=== PATIENT | male | born 1985 | race Caucasian/White ===

== ENCOUNTER 2016-07-13 09:00 | Outpatient (RCR) | payer MEDICAID ==
[~2016-07-13 09:00] MED LIST: BENZ1TA PO; GEOD20CA14 PO; TRAZ50TA4 PO; ZIPR80CA12 PO
== END 2016-07-27 ==
LOC: M OUTALCOH 09:00
PROVIDERS: ATTEND Psychiatry & Neurology Psychiatry
DX: F10.10 Alcohol abuse, uncomplicated (principal)

== ENCOUNTER → 2016-07-30 | Outpatient (REF) | payer OTHER | LOC: M SFHCPLAZ 13:01 | PROVIDERS: ATTEND Physician Assistant | DX: Z23 Encounter for immunization (principal) ==

== ENCOUNTER → 2016-10-12 | Outpatient (REF) | payer OTHER | LOC: M LAB REF 16:26 | PROVIDERS: ATTEND Physician Assistant Medical | DX: R30.0 Dysuria (principal) ==

== ENCOUNTER → 2016-10-20 | Outpatient (REF) | payer OTHER ==
[2016-10-20 16:25] LABS: BASO # 0.1 K/mm3 (0.0-0.2); BASO % 0.8 % (0.0-1.0); EOS # 0.1 K/mm3 (0.0-0.50); EOS % 1.3 % (0.0-3.0); LARGE UNSTAINED CELL # 0.1 K/mm3 (0.0-0.4); LARGE UNSTAINED CELL % 1.1 % (0.0-4.0); LYMPH # 2.2 K/mm3 (1.5-6.5); LYMPH % 22.2 % (24.0-44.0); MEAN CORPUSCULAR HGB CONC 32.8 g/dl (32.0-36.5); MEAN CORPUSCULAR VOLUME 94.4 fl (80.0-96.0); MONO # 0.5 K/mm3 (0.0-0.8); MONO % 5.1 % (0.0-5.0); NEUTROPHILS # 6.6 K/mm3 (1.8-7.7); NEUTROPHILS % 69.6 % (36.0-66.0); PLATELET COUNT, AUTOMATED 275 k/mm3 (150-450); RED CELL DISTRIBUTION WIDTH 11.8 % (11.5-14.5); WHITE BLOOD COUNT 9.4 K/mm3 (4.0-10.0)
[2016-10-20 19:08] LABS: ALBUMIN 3.9 GM/DL (3.2-5.2); ALBUMIN/GLOBULIN RATIO 1.15 (1.00-1.93); ALKALINE PHOSPHATASE 70 U/L (45-117); ALT/SGPT 22 U/L (12-78); AMYLASE 41 U/L (25-115); ANION GAP 8 MEQ/L (8-16); AST/SGOT 18 U/L (15-37); BILIRUBIN,TOTAL 0.3 MG/DL (0.2-1.0); BLOOD UREA NITROGEN 15 MG/DL (7-18); CALCIUM LEVEL 8.7 MG/DL (8.5-10.1); CARBON DIOXIDE LEVEL 29 MEQ/L (21-32); CHLORIDE LEVEL 105 MEQ/L (98-107); CREATININE FOR GFR 1.11 MG/DL (0.70-1.30); GLOMERULAR FILTRATION RATE > 60.0 (>60); GLUCOSE, FASTING 71 MG/DL (70-105); POTASSIUM SERUM 4.2 MEQ/L (3.5-5.1); SODIUM LEVEL 142 MEQ/L (136-145); TOTAL PROTEIN 7.3 GM/DL (6.4-8.2)
== END ==
LOC: M SFHCPLAZ 13:45
PROVIDERS: ATTEND Physician Assistant
DX: R10.9 Unspecified abdominal pain (principal)

== ENCOUNTER 2017-02-01 22:52 | Inpatient (IN) | payer MEDICAID, OTHER ==
[~2017-02-01] VITALS: Ht 190.5 cm; Wt 72.2 kg
[~2017-02-01 22:52] MED LIST changes: -GEOD60CA PO; -MUPI2OI TOP; -NAPHSOL OU; -TRAZO50TA PO
[2017-02-01] MEDS ORDERED: LORazepam 1 MG TAB PO ONE (23:15)
[2017-02-01] MEDS ORDERED: HALOPERIDOL 5 MG TAB PO ONE (23:15)
[2017-02-01 23:59] LABS: MEAN CORPUSCULAR HGB CONC 32.9 g/dl (32.0-36.5); MEAN CORPUSCULAR VOLUME 91.1 fl (80.0-96.0); RED CELL DISTRIBUTION WIDTH 12.5 % (11.5-14.5)
[2017-02-02 00:22] LABS: METHADONE URINE NEGATIVE (NEGATIVE)
[2017-02-02 00:31] LABS: ALBUMIN 4.1 GM/DL (3.2-5.2); ALBUMIN/GLOBULIN RATIO 1.21 (1.00-1.93); ALKALINE PHOSPHATASE 55 U/L (45-117); ALT/SGPT 17 U/L (12-78); ANION GAP 6 MEQ/L (8-16); AST/SGOT 23 U/L (15-37); BILIRUBIN,DIRECT 0.3 MG/DL (0.0-0.2); BILIRUBIN,TOTAL 1.3 MG/DL (0.2-1.0); BLOOD UREA NITROGEN 12 MG/DL (7-18); CALCIUM LEVEL 9.2 MG/DL (8.5-10.1); CARBON DIOXIDE LEVEL 31 MEQ/L (21-32); CHLORIDE LEVEL 105 MEQ/L (98-107); CREATININE FOR GFR 0.98 MG/DL (0.70-1.30); GLOMERULAR FILTRATION RATE > 60.0 (>60); GLUCOSE, FASTING 85 MG/DL (70-105); POTASSIUM SERUM 3.7 MEQ/L (3.5-5.1); SODIUM LEVEL 142 MEQ/L (136-145); TOTAL PROTEIN 7.5 GM/DL (6.4-8.2)
[2017-02-02] MEDS ORDERED: BENZ-52 PO (02:04)
[2017-02-02] MEDS ORDERED: GEOD60CA PO (02:04)
[2017-02-02] MEDS ORDERED: ZIPR80CA12 PO (02:04)
[2017-02-02 03:52] VITALS: BP 120/82
[2017-02-02] MEDS ORDERED: MAALOX 30 ML SUSP *UDC PO PRN (04:45)
[2017-02-02] MEDS ORDERED: MOM 30ML SUSPENSION UDC PO PRN (04:45)
[2017-02-02] MEDS: ACETAMINOPHEN TAB 650MG DOSE (2X325MG) PO PRN ×3 (06:07→15:51)
--- NOTE | 2017-02-02 09:29 | HPEPDOC ---
Medical History and Physical Date of Admission Feb 02, 2017 at 01:24 History and Physical PCP: Tiana SEVILLA ATTENDING: Dr. Valentín Fletcher HPI: 31yoM admitted to [facility] for schizoaffective disorder unspecified, being medically examined today. No acute medical complaints today. Patient states he had eye pain this morning however he took Tylenol and it resolved. He states he has intermittent eye pain, he attributes this to playing a lot of video games. He denies headache pain, vision changes, diplopia or blurred vision. He denies any pain currently. Denies any fevers, chills, weakness, fatigue, CP, SOB, cough, palpitations, abdominal pain, N/V/D or changes in bowel or bladder habits. PMHx: Schizoaffective disorder Bipolar disorder Anxiety depression H/O SI PSHX: Denies SOCHX: Resides in: [place]. Lives alone. Marital Status: Single Kids: None Employment: unemployed Tobacco use: Denies ETOH: denies Illicit Drugs: denies. H/O Marijuana, states he last used years ago IV Drug Use: Denies Tattoos done unprofessionally: Denies FAMHX: Mother: Alive, well Father: when he was 7 years old- Homicide Siblings: 1 sister Alive, well Children: None Unexpected deaths due to medical reasons: None. ROS: As noted in HPI, otherwise 11pt ROS of systems reviewed and remarkable for possible UTI. Pt states this was diagnosed at and he did not fill prescription for antibiotics. Denies dysuria, frequency, urgency, hematuria. Sometimes it takes longer to start urinating per pt. PE: GEN: 31yoM, appears stated age. Well-nourished, well developed. No acute distress. Alert and oriented x 3. Appears anxious. HEENT: Normocephalic, atraumatic. Pupils are equal, round, and reactive to light. Extraocular movements are intact. No nystagmus appreciated. Sclera are nonicteric. Conjunctiva without injection. Nose midline. Nasal turbinates without bogginess. EACs both patent BL. TMs both visualized and hutchins with good cone of light, no bulging or erythema. No facial asymmetry. Moist mucous membranes. Dentition fair. Pharynx pink and moist, no cobblestoning. Neck supple , trachea midline. No lymphadenopathy or thyromegaly appreciated. CHEST: Regular rate and rhythm, +S1, +S2 LUNGS: Clear to auscultation bilaterally. No wheezes, rales, or rhonchi. Breathing appears symmetric and easy. Patient is speaking in full sentences. No accessory muscle use. ABD: Round, soft, non-tender, non-distended. +Bowel sounds throughout. No rebound or guarding. No costovertebral angle tenderness. EXT: Pulses 2+ bilaterally dorsalis pedis and radial. No lower extremity edema appreciated. SKIN: [place], dry, warm. Capillary refill <2sec. No rashes. NEURO: Alert and oriented x 3. Cranial nerves III-XII are intact. No focal deficits appreciated. EKG: pending. A&P: 30yoM admitted to [facility] for schizoaffective disorder unspecified, 1. Psych. Plan per Psychiatry. EKG on file. 2. Possible UTI. UC pending. 3. Follow up with PCP on discharge. 4. Staff member Jayme present throughout exam. Vital Signs Vital Signs Date Time Temp Pulse Resp B/P (MAP) Pulse Ox O2 Delivery O2 Flow Rate FiO2 02/02/17 03:52 98.8 80 16 120/82 (95) Room Air 02/02/17 03:09 99 Laboratory Data Labs 24H Laboratory Tests 2 02/01/17 23:44: Urine Amphetamines Screen NEGATIVE, Urine Benzodiazepines Screen NEGATIVE, Urine Opiates Screen NEGATIVE, Urine Methadone Screen NEGATIVE, Urine Barbiturates Screen NEGATIVE, Urine Phencyclidine Screen NEGATIVE, Urine Cocaine Metabolite Screen NEGATIVE, Urine Cannabinoids Screen NEGATIVE 02/01/17 23:46: Anion Gap 6L, Glomerular Filtration Rate > 60.0, Calcium Level 9.2, Aspartate Amino Transf (AST/SGOT) 23, Alanine Aminotransferase (ALT/SGPT) 17, Alkaline Phosphatase 55, Total Bilirubin 1.3H, Direct Bilirubin 0.3H, Total Protein 7.5, Albumin 4.1, Albumin/Globulin Ratio 1.21, Thyroid Stimulating Hormone (TSH) 1.500, Salicylates Level < 1.7L, Acetaminophen Level < 2.0L, Ethyl Alcohol Level < 0.003 CBC/BMP Laboratory Tests 02/01/17 23:46 Red Blood Count 4.89, Mean Corpuscular Volume 91.1, Mean Corpuscular Hemoglobin 30.0, Mean Corpuscular Hemoglobin Concent 32.9, Red Cell Distribution Width 12.5 Home Medications Scheduled Benztropine Mesylate (Benztropine Mesylate) 1 Mg Tab, 1 MG PO QHS Ziprasidone Hydrochloride (Geodon) 60 Mg Cap, 60 MG PO QHS TAKES WITH THE 80 MG FOR 140 MG TOTAL Ziprasidone Hydrochloride (Ziprasidone HCl) 80 Mg Cap, 80 MG PO QHS TAKES WITH THE 60 MG FOR 140 MG TOTAL Allergies Coded Allergies: No Known Drug Allergy (Verified Allergy, Unknown, 01/12/15) Verified per Pt Shaniqua Maxwell Feb 02, 2017 09:29
[2017-02-02] MEDS ORDERED: hydrOXYzine 50 MG TAB PO PRN (10:15)
[2017-02-02] MEDS ORDERED: LORazepam 2 MG TAB PO STA (13:25)
[2017-02-02] MEDS: LORazepam 1 MG TAB PO PRN (15:51)
--- NOTE | 2017-02-02 17:54 | MHHPEPDOC ---
[facility] History & Physical History and Physical DATE OF ADMISSION: Feb 02, 2017 at 01:24 LEGAL STATUS AT ADMISSION: . CHIEF COMPLAINT: Patient reports he brought himself to the hospital because his girlfriend of two months broke up with him and left him for another man. He says he is heartbroken, he has known her for quite a while although they started dating recently. She has told him they can remain friends and he hasn't lost hope, for that reason he keeps calling her. He has been feeling increasingly depressed and anxious, has had suicidal thoughts, for that reason he looked for help. HISTORY OF THE PRESENT ILLNESS: Patient is a 31-year-old male, who has a history of schizoaffective disorder who brought himself to the hospital, because he was feeling suicidal after girlfriend broke up with him. PSYCHIATRIC REVIEW OF SYSTEMS: Affective: Very anxious, sad, hopeless, helpless Anxiety: Extremely high. Trauma: Needs further assessment. Psychosis: H/O schizoaffective disorder. Personally: Needs further assessment. PAST PSYCHIATRIC HISTORY: Prior Psychiatric Disorder: H/O schizoaffective d/o. Outpatient Treatment: Follows up at [facility]. Suicidal/Self injurious: Has had suicidal ideation for the past couple of days due to breakup with girlfriend. Psychotropic Medication History: ALLERGIES: Please see below. FAMILY PSYCHIATRIC HISTORY: According to history, his father had a history of bipolar disorder, was murdered while intoxicated over a debt he had over a card game. SOCIAL HISTORY: Early Relations/development: Repots no conflicts with parents, relatives, teachers. Sibling order: he has three siblings Paternal relationships: Good Education: HS diploma Occupational: Unemployed Legal: Denied Martial: Not Economic: Denies financial strains Supports: Family, parents, siblings Abuse/trauma: Denies. SUBSTANCE ABUSE HISTORY: Denies. PAST MEDICAL/SURGICAL HISTORY: Unremarkable VITAL SIGNS: See below MENTAL STATUS EXAMINATION: General appearance: Patient is a 31 year old male who is alert, oriented x 3, cooperative. Speech: Spontaneous and fluid. Thought processes: Intact. Thought content: Anxious, worried. Abstract reasoning and computation: Unable to assess at this time. Description of associations: Good. Description of abnormal or psychotic thoughts: Somatic delusions, preoccupied with ideas of having urinary tract infection, claims the 'artificial light" is hurting his eyes. Denies auditory and visual hallucinations. Judgment: Poor. Insight: Poor. Orientation: Oriented x 3. Recent and remote memory: Fair. Attention span and concentration: Easily distractible. Fund of knowledge: Unable to assess at this time. Mood: "Anxious." Affect: Anxious/depressed. DIAGNOSES: 1. Schizoaffective disorder. ASSESSMENT: Patient has poor insight and judgement, has made wrong chices regarding his love life before and continues to make them. He seems to be feel lonely and need someone to love. he is depressed and extremely anxious. PROBLEM LIST: 1. Depression 2. Anxiety. 3. Risk for suicide 4. Ineffective coping INITIAL TREATMENT PLAN: 1. Patient was admitted on a 2. Complete history was obtained. 3. With patients permission, family will be contacted and database will be expanded. 4. Patients medication regimen will be reviewed and changed accordingly. 5. Patient will be provided with protected environment. 6. Patient will be treated with individual, group, and milieu therapies. 7. Patient will receive supportive psych-education. 8. Discharge planning will commence immediately. 9. Outpatient follow-up treatment will be strongly recommended. 10. The initial treatment plan will focus initially on: * Depression. * Risk for suicide. * Substance abuse. ESTIMATED LENGTH OF STAY: 7-10 DAYS. TIME SPENT COUNSELING AND COORDINATING INITIAL CARE: 60 minutes. Laboratory Data 24H Labs Laboratory Tests 2 02/01/17 23:44: Urine Amphetamines Screen NEGATIVE, Urine Benzodiazepines Screen NEGATIVE, Urine Opiates Screen NEGATIVE, Urine Methadone Screen NEGATIVE, Urine Barbiturates Screen NEGATIVE, Urine Phencyclidine Screen NEGATIVE, Urine Cocaine Metabolite Screen NEGATIVE, Urine Cannabinoids Screen NEGATIVE 02/01/17 23:46: Anion Gap 6L, Glomerular Filtration Rate > 60.0, Calcium Level 9.2, Aspartate Amino Transf (AST/SGOT) 23, Alanine Aminotransferase (ALT/SGPT) 17, Alkaline Phosphatase 55, Total Bilirubin 1.3H, Direct Bilirubin 0.3H, Total Protein 7.5, Albumin 4.1, Albumin/Globulin Ratio 1.21, Thyroid Stimulating Hormone (TSH) 1.500, Salicylates Level < 1.7L, Acetaminophen Level < 2.0L, Ethyl Alcohol Level < 0.003 CBC/BMP Laboratory Tests 02/01/17 23:46 Red Blood Count 4.89, Mean Corpuscular Volume 91.1, Mean Corpuscular Hemoglobin 30.0, Mean Corpuscular Hemoglobin Concent 32.9, Red Cell Distribution Width 12.5 Medications Scheduled Benztropine Mesylate (Benztropine Mesylate) 1 Mg Tab, 1 MG PO QHS, (Reported) Ziprasidone Hydrochloride (Geodon) 60 Mg Cap, 60 MG PO QHS, (Reported) TAKES WITH THE 80 MG FOR 140 MG TOTAL Ziprasidone Hydrochloride (Ziprasidone HCl) 80 Mg Cap, 80 MG PO QHS, (Reported) TAKES WITH THE 60 MG FOR 140 MG TOTAL Allergies Coded Allergies: No Known Drug Allergy (Verified Allergy, Unknown, 01/12/15) Verified per Pt RAYMOND VICENTE MD Feb 02, 2017 17:54
[2017-02-02 18:09] VITALS: BP 135/86
[2017-02-02] MEDS: traZODone 50 MG TAB PO PRN (20:33)
[2017-02-02] MEDS: BENZTROPINE 1 MG TAB PO SCH (20:33)
[2017-02-02] MEDS: ZIPRASIDONE 20MG CAPSULE (GEODON) PO SCH (20:33)
[2017-02-02] MEDS: ZIPRASIDONE 80 MG CAP (GEODON) PO SCH (20:33)
--- NOTE | 2017-02-02 23:06 | ECGEPIP ---
Stationary ECG Study [facility] Test Date: 2017-02-02 Pat Name: SATNAM BROWN Department: Room: [place] [address] Gender: M Hardwood Finisher: CHASIDY : 1985 Requested By: Shaniqua Maxwell Order Number: [id number] Reading MD: Sy Rose Measurements Intervals [place] Rate: 68 P: 60 PA: 167 QRS: 88 QRSD: 113 T: 65 QT: 399 QTc: 424 Interpretive Statements SINUS RHYTHM INCOMPLETE RIGHT BUNDLE BRANCH BLOCK ST ELEVATION CONSISTENT WITH EARLY REPOLARIZATION COMPARED TO THE LAST 3 TRACINGS IN THE SYSTEM, NO SIGNIFICANT CHANGES Electronically Signed On 02-02-2017 23:06:36 EDT by Sy Rose
[2017-02-03] MEDS: LORazepam 1 MG TAB PO PRN ×3 (06:15→18:36)
[2017-02-03] MEDS: ACETAMINOPHEN TAB 650MG DOSE (2X325MG) PO PRN ×3 (06:15→18:36)
[2017-02-03 07:25] VITALS: BP 121/78
[2017-02-03 18:00] VITALS: BP 126/67
[2017-02-03] MEDS: ZIPRASIDONE 20MG CAPSULE (GEODON) PO SCH (20:27)
[2017-02-03] MEDS: ZIPRASIDONE 80 MG CAP (GEODON) PO SCH (20:27)
[2017-02-03] MEDS: BENZTROPINE 1 MG TAB PO SCH (20:28)
[2017-02-03] MEDS: traZODone 50 MG TAB PO PRN (20:28)
--- NOTE | 2017-02-04 05:18 | MHIPN ---
DATE OF SERVICE: 02/03/2017 31-year-old male with history of schizoaffective disorder. SUBJECTIVE: Patient reports feeling calmer today, he denies suicidal ideation, but says he continues to be anxious, although less than yesterday. Requests Atarax and says that because he does not take Ativan that frequently he becomes very anxious. Reports he had difficulty sleeping, says he is eating well, has been talking on the phone with his ex-girlfriend and that has made him feel good. OBJECTIVE: Patient is alert and oriented, he continues to look anxious and sad, his speech is spontaneous, his thought process is intact, his thought content is anxious regarding the recent breakup from ex-girlfriend. He denies homicidal ideation, denies auditory or visual hallucinations, denies paranoid delusions and denies grandiose delusions. His judgment and insight continue to be poor, his impulse control is fair. ASSESSMENT: Patient was observed today to be too close to a female patient. Initially, the idea was that he was harassing this female patient, but later on it was confirmed that it was the female patient who was harassing him. We discussed the situation with him and he said that he had been talking to her because he knew her from before, but he had no interest whatsoever in her, he was going to remain in his room. Patient seems to be responding well to medications, although he is still very anxious. PLAN: Will continue patient on the same medications, he does not want to be switched from Geodon to another antipsychotic medication. The only change that was done today was for Atarax that it was added 50 mg by mouth every 4 hours as needed for anxiety and he also has Ativan for anxiety. Will continue to encourage him to attend groups, will monitor and followup.
[2017-02-04] MEDS: ACETAMINOPHEN TAB 650MG DOSE (2X325MG) PO PRN ×2 (06:29→12:36)
[2017-02-04 07:00] VITALS: BP 120/58
[2017-02-04] MEDS: LORazepam 1 MG TAB PO PRN ×2 (08:12→14:13)
[2017-02-04] MEDS ORDERED: HALOPERIDOL 2 MG TAB PO PRN (16:00)
[2017-02-04] MEDS ORDERED: LORazepam 2 MG TAB PO STA (16:21)
[2017-02-04 18:00] VITALS: BP 136/74
[2017-02-04] MEDS: traZODone 50 MG TAB PO PRN (20:11)
[2017-02-04] MEDS: BENZTROPINE 1 MG TAB PO SCH (20:11)
[2017-02-04] MEDS: ZIPRASIDONE 80 MG CAP (GEODON) PO SCH (20:11)
[2017-02-04] MEDS: LORazepam 2 MG TAB PO SCH (20:11)
[2017-02-04] MEDS: ZIPRASIDONE 20MG CAPSULE (GEODON) PO SCH (20:12)
[2017-02-05] MEDS: LORazepam 2 MG TAB PO SCH ×3 (05:58→21:26)
[2017-02-05 06:53] VITALS: BP 112/56
[2017-02-05] MEDS: ACETAMINOPHEN TAB 650MG DOSE (2X325MG) PO PRN ×2 (09:21→16:19)
[2017-02-05 12:00] VITALS: BP 124/70
--- NOTE | 2017-02-05 14:43 | MHIPN ---
DATE OF SERVICE: 02/04/2017 31-year-old male with history of schizoaffective disorder. SUBJECTIVE: Patient reports feeling better, he just spoke to his ex-girlfriend who told him, once again, that she loves him as a friend. Patient feels hopeful about this affirmation, he also states that he knows the person his ex- girlfriend is seeing now has problems with drugs and alcohol and he does not, so he hopes the new relationship his ex-girlfriend is in will break in a couple of months or in a couple of days. OBJECTIVE: Patient is alert and oriented times three, cooperative, talkative, anxious/ __depressed____. His speech is fluent and spontaneous, his thought process is intact. His thought content is about his recent failed relationship. Denies suicidal ideation, denies homicidal ideation, denies auditory or visual hallucinations, denies thought delusions. His judgment and insight are very poor , his impulse control is limited. ASSESSMENT: Patient has very limited insight into his situation, still has hope for a failed relationship with a woman who once was a patient at inpatient mental health unit, and now he has accepted the attention of another female patient who is also at the inpatient mental health unit. He is making bad choices, because he is not giving himself the right time to heal or to choose somebody, and he sets himself for failure. He became slightly aggressive with male nurses' aide this afternoon, when they redirected his female friend. He was trying to protect her from them and there was nothing to protect. He could not understand that she needed to be redirected, but he became aggressive. For that reason, he was given a stat dose of Ativan. PLAN: Will continue the same medications but will add Ativan to calm him down, decrease his anxiety, and add Haldol for the same reasons and to help him cope with agitation. Will followup closely. MILKA
[2017-02-05 18:00] VITALS: BP 124/73
[2017-02-05 20:00] VITALS: BP 130/78
[2017-02-05] MEDS: ZIPRASIDONE 20MG CAPSULE (GEODON) PO SCH (20:06)
[2017-02-05] MEDS: hydrOXYzine 50 MG TAB PO PRN (20:06)
[2017-02-05] MEDS: BENZTROPINE 1 MG TAB PO SCH (20:06)
[2017-02-05] MEDS: traZODone 50 MG TAB PO PRN (20:06)
[2017-02-05] MEDS: ZIPRASIDONE 80 MG CAP (GEODON) PO SCH (20:06)
[2017-02-06] MEDS: LORazepam 2 MG TAB PO SCH ×3 (05:57→21:39)
[2017-02-06 06:39] VITALS: BP 121/64
[2017-02-06] MEDS: ACETAMINOPHEN TAB 650MG DOSE (2X325MG) PO PRN ×2 (11:42→20:24)
[2017-02-06] MEDS: hydrOXYzine 50 MG TAB PO PRN ×2 (11:42→17:51)
--- NOTE | 2017-02-06 18:20 | MHIPN ---
DATE: 02/05/2017 The patient today states "I'm doing good." He states that he is feeling better with his ex-girlfriend and she wants to continue to be his friend and he feels that helps him feel better. He says he has slept, but he has no complaints. MENTAL STATUS EXAMINATION: The patient is alert and oriented times three. Eye contact fair. Psychomotor activity is normal. Verbally spontaneous. There is no formal thought disorder. His mood is good. His affect is full range and appropriate. He is not psychotic, suicidal or homicidal. Insight and judgment are fair. DIAGNOSIS: 1. Schizoaffective disorder TREATMENT AND PLAN: At this point, we will continue to monitor the patient for continued resolution for suicidal ideation and stabilization of his mood.
[2017-02-06 18:38] VITALS: BP 114/80
[2017-02-06] MEDS: ZIPRASIDONE 20MG CAPSULE (GEODON) PO SCH (20:23)
[2017-02-06] MEDS: ZIPRASIDONE 80 MG CAP (GEODON) PO SCH (20:23)
[2017-02-06] MEDS: BENZTROPINE 1 MG TAB PO SCH (20:24)
[2017-02-06] MEDS: traZODone 50 MG TAB PO PRN (20:24)
[2017-02-07] MEDS: LORazepam 2 MG TAB PO SCH ×3 (06:00→20:21)
--- NOTE | 2017-02-07 06:39 | IPN ---
DATE OF SERVICE: 02/06/2017 The patient today states, "I am doing well". He then says he is not feeling good today because last night he spoke with his ex-girlfriend and called her a bad name over the phone and so he realizes that that was not good to do. He slept good however. He is denying suicidal ideation. MENTAL STATUS EXAMINATION: This patient is alert and oriented times three. Eye contact is fair. Psychomotor activity is normal. He is verbally spontaneous. There is no formal thought disorder noted. Mood is "not good". Affect is full range and appropriate to his mood. He is not psychotic, suicidal or homicidal. Concentration fair. Insight and judgment fair. DIAGNOSIS: Schizoaffective disorder. TREATMENT PLAN: At this point, will continue the patient on his current medications and continue to monitor him for continued stabilization of his mood and resolution of his suicidal ideations.
[2017-02-07 07:22] VITALS: BP 112/59
[2017-02-07] MEDS: ACETAMINOPHEN TAB 650MG DOSE (2X325MG) PO PRN ×2 (08:30→18:01)
[2017-02-07] MEDS: hydrOXYzine 50 MG TAB PO PRN ×2 (09:27→18:00)
[2017-02-07 18:00] VITALS: BP 106/51
[2017-02-07] MEDS: BENZTROPINE 1 MG TAB PO SCH (20:21)
[2017-02-07] MEDS: traZODone 50 MG TAB PO PRN (20:21)
[2017-02-07] MEDS: ZIPRASIDONE 20MG CAPSULE (GEODON) PO SCH (20:21)
[2017-02-07] MEDS: ZIPRASIDONE 80 MG CAP (GEODON) PO SCH (20:22)
[2017-02-08] MEDS: LORazepam 2 MG TAB PO SCH ×2 (05:56→12:52)
[2017-02-08 07:09] VITALS: BP 111/60
--- NOTE | 2017-02-08 08:25 | MHIPN ---
DATE: 02/07/2017 SUBJECTIVE: The patient reports he is feeling well, he says he is ready to be discharged, he says he feels good because he just spoke with his ex-girlfriend and she has forgiven him for calling her a bad name last night, he says he even spoke with his ex-girlfriend's actual boyfriend, who picked up the phone. He says he wants to be like Marlo, be perfect like him, he says he does not want to be in a relationship anymore and he wants to stay away from another patient who becoming too close to him. OBJECTIVE (MENTAL STATUS EXAMINATION): Patient is alert and oriented times three, eye contact is good, he has no psychomotor retardation or agitation, his speech is normal, fluent and spontaneous, he denies visual and auditory hallucinations, has no thought delusions, is not responding to internal stimuli. He denies homicidal or suicidal ideation, his mood is "better". Affect is congruent to mood. Insight and judgment are still poor. DIAGNOSIS: Schizoaffective disorder. TREATMENT PLAN: Patient will continue the same medications, will reassess tomorrow for a possible discharge. Will followup.
[2017-02-08] MEDS: ACETAMINOPHEN TAB 650MG DOSE (2X325MG) PO PRN (09:19)
[2017-02-08] MEDS: hydrOXYzine 50 MG TAB PO PRN (09:20)
[2017-02-08] MEDS ORDERED: TRAZO50TA PO (11:15)
--- NOTE | 2017-02-08 20:53 | MHDSPDOC ---
[facility] Discharge Summary Discharge Summary DATE OF ADMISSION: Feb 02, 2017 at 01:24 DATE OF DISCHARGE: Feb 08, 2017 at 12:10 DISCHARGE DIAGNOSES: 1. Schizoaffective Disorder REASON FOR ADMISSION: Patient reports he brought himself to the hospital because his girlfriend of two months broke up with him and left him for another man. He says he is heartbroken, he has known her for quite a while although they started dating recently. She has told him they can remain friends and he hasn't lost hope, for that reason he keeps calling her. He has been feeling increasingly depressed and anxious, has had suicidal thoughts, for that reason he looked for help. CONSULTANTS INVOLVED: None TREATMENT AND PROGRESS ON THE UNIT : Patient was admitted because he was suicidal after his girlfriend broke up with him, leaving him for another man.He was very sad, very anxious when he was initially evaluated. He also was complaining of urinary symptoms, frequency and urgency on urination.He reported he had gone to Urgent Care and he had provided a urine specimen for urinalysis. This was negative but he already had been given antibiotics. These were discontinued. He also complained of eye pain because he plays video games and spends too much time in front of the computer. He couldn't sit still, he would constantly talk about his ex girlfriend. he also reported he kept calling her because she had told him she was still his friend and loved him as a friend. A female patient became close to the patient and both had to be re directed, he said he was accepting her attention because he needed it, it made him feel good. On Tuesday afternoon he became a behavioral issue at the [facility] because he was becoming aggressive carroll this female patient was re directed by nursing staff. He never wanted to change his usual medications, Geodon 140 mgs PO QHS, although Haldol, Ativan, Atarax were added as PRN medications for anxiety/ agitation. he also continued using Cogentin 1 mg PO QD for extrapyramidal side effects.Since yesterday he has requested to go home, told him he had to refrain from looking for his ex girlfriend and her new boyfriend. He said he would stay away if he found her with her new boyfriend. This was an issue because he goes to [employer] and apparently his ex girlfriend's new boyfriend lives next to [employer], so, if the patient goes there, he can see his ex GF car parked in there. HOSPITAL COURSE: As above DISCHARGE ASSESSMENT: Patient was not in danger to self or others, was not psychotic, was not suicidal and was not homicidal MENTAL STATUS EXAMINATION ON DISCHARGE: Patient is a 31-year old male, who is alert, cooperative, pleasant. Speech is Spontaneous, fluid. Language skills are Fair. Thought processes including: Intact. Thought content: Coherent. Abstract reasoning, and computation: Fair. Description of associations: Good. Description of abnormal or psychotic thoughts: Denies thought delusions, denies auditory and visual hallucinations, denie suicial and homicidal ideation. Judgment: Limited. Insight: Limited. Orientation to Oriented x 3. Recent and remote memory: Intact. Attention span and concentration: Fair. Language: Normal. Fund of knowledge: Fair. Mood: Euthymic. Affect: Congruent to mood MEDICATIONS ON DISCHARGE: - Zyprasidone 140 mgs. PO for psychosis. - Cogentin 1 mg Po QD for extrapyramidal side effects - Trazodone 50 mgs PO QHS PRN for insomnia PLAN/FOLLOWUP ARRANGEMENTS: [facility] in [place]. The amount of time spent in the coordination of care for this patient was approximately 60 minutes. Vital Signs/I&Os Vital Signs Date Time Temp Pulse Resp B/P (MAP) Pulse Ox O2 Delivery O2 Flow Rate FiO2 02/08/17 07:09 97.3 61 16 111/60 (77) Room Air 02/02/17 03:09 99 Medications Scheduled Benztropine Mesylate (Benztropine Mesylate) 1 Mg Tab, 1 MG PO QHS, (Reported) Ziprasidone Hydrochloride (Geodon) 60 Mg Cap, 60 MG PO QHS, (Reported) TAKES WITH THE 80 MG FOR 140 MG TOTAL Scheduled PRN Trazodone HCl (Trazodone HCl) 50 Mg Tab, 50 MG PO QHSP PRN for INSOMNIA, #14 Allergies Coded Allergies: No Known Drug Allergy (Verified Allergy, Unknown, 02/08/17) Verified per Pt RAYMOND VICENTE MD Feb 08, 2017 20:53
== END 2017-02-08 12:10 | disposition home or self-care (01) | DRG 750 ==
LOC: M ED 22:52 → M ED INP 02-02 01:24 → M PSY 02-02 03:20
PROVIDERS: ADMIT Psychiatry & Neurology Psychiatry; ATTEND Psychiatry & Neurology Psychiatry
DX: F25.9 Schizoaffective disorder, unspecified (principal); N39.0 Urinary tract infection, site not specified; R45.851 Suicidal ideations; Z79.899 Other long term (current) drug therapy

== ENCOUNTER → 2017-02-01 | Outpatient (REF) | payer OTHER, MEDICAID ==
[~2017-02-01] MED LIST changes: +BENZ-52 PO; -BENZ1TA PO; +GEOD60CA PO; +MUPI2OI TOP; +NAPHSOL OU; +TRAZ50TA11 PO; -TRAZ50TA4 PO; +TRAZO50TA PO
== END ==
LOC: M LAB REF 16:43
PROVIDERS: ATTEND Physician Assistant Medical
DX: R10.2 Pelvic and perineal pain (principal)

== ENCOUNTER 2017-02-08 19:45 | Emergency (ER) | payer MEDICAID, OTHER ==
[~2017-02-08] VITALS: Ht 182.9 cm; Wt 72.0 kg
[~2017-02-08 19:45] MED LIST changes: +GEOD60CA PO; +TRAZO50TA PO
[2017-02-08] MEDS ORDERED: TETANUS/DIPHTHERIA TOX ADSORB ADULT 0.5ML SYR/VIAL (90714) IM ONE (20:00)
[2017-02-08] MEDS ORDERED: METOCLOPRAMIDE INJ 10MG/2ML VIAL (J2765) IV ONE (20:15)
--- NOTE | 2017-02-08 20:50 | REPUSA ---
CLINICAL HISTORY: Head trauma COMPARISON: No study for comparison is available at the time of interpretation. TECHNIQUE: Head CT without contrast. Total DLP 1491.2 mGy*cm Brain: No intracranial hemorrhage or parenchymal edema. Calvarium: No depressed fractures. Sinuses (partially visualized): No hemorrhage fluid levels. IMPRESSION: No intracranial hemorrhage or fracture.
[2017-02-08] MEDS ORDERED: DERMABOND TOPICAL SKIN ADHESIVE TOP ONE (22:15)
[2017-02-08 22:50] VITALS: BP 135/71
== END 2017-02-08 23:00 | disposition home or self-care (01) ==
LOC: M ED 19:45
DX: S01.81XA Laceration without foreign body of other part of head, initial encounter (principal); S90.412A Abrasion, left great toe, initial encounter; W17.89XA Other fall from one level to another, initial encounter; Y92.098 Other place in other non-institutional residence as the place of occurrence of the external cause; Y93.89 Activity, other specified; Y99.8 Other external cause status; F10.120 Alcohol abuse with intoxication, uncomplicated; F25.9 Schizoaffective disorder, unspecified; Z79.899 Other long term (current) drug therapy
CPT/HCPCS: 12011; 70450; 90471; 90714; 96374; 99283; J2765

== ENCOUNTER 2017-02-10 11:13 | Inpatient (IN) | payer OTHER ==
[~2017-02-10] VITALS: Ht 190.5 cm; Wt 73.8 kg
[2017-02-10] MEDS ORDERED: LORazepam 1 MG TAB PO STA (14:15)
[2017-02-10 15:01] LABS: METHADONE URINE NEGATIVE (NEGATIVE)
[2017-02-10] MEDS ORDERED: ZIPR80CA12 PO (15:41)
[2017-02-10] MEDS ORDERED: TRAZ50TA11 PO (15:41)
[2017-02-10 15:46] LABS: MEAN CORPUSCULAR HEMOGLOBIN 30.8 pg (27.0-33.0); MEAN CORPUSCULAR HGB CONC 34.1 g/dl (32.0-36.5); MEAN CORPUSCULAR VOLUME 90.4 fl (80.0-96.0); RED CELL DISTRIBUTION WIDTH 12.5 % (11.5-14.5); WHITE BLOOD COUNT 7.9 K/mm3 (4.0-10.0)
[2017-02-10 16:18] LABS: ALBUMIN 4.5 GM/DL (3.2-5.2); ALBUMIN/GLOBULIN RATIO 1.32 (1.00-1.93); ALKALINE PHOSPHATASE 49 U/L (45-117); ALT/SGPT 15 U/L (12-78); ANION GAP 15 MEQ/L (8-16); AST/SGOT 15 U/L (15-37); BILIRUBIN,DIRECT 0.3 MG/DL (0.0-0.2); BILIRUBIN,TOTAL 1.2 MG/DL (0.2-1.0); BLOOD UREA NITROGEN 7 MG/DL (7-18); CALCIUM LEVEL 10.2 MG/DL (8.5-10.1); CARBON DIOXIDE LEVEL 21 MEQ/L (21-32); CHLORIDE LEVEL 100 MEQ/L (98-107); CREATININE FOR GFR 0.39 MG/DL (0.70-1.30); GLOMERULAR FILTRATION RATE > 60.0 (>60); GLUCOSE, FASTING 81 MG/DL (70-105); POTASSIUM SERUM 3.1 MEQ/L (3.5-5.1); SODIUM LEVEL 136 MEQ/L (136-145); TOTAL PROTEIN 7.9 GM/DL (6.4-8.2)
[2017-02-10] MEDS ORDERED: MOM 30ML SUSPENSION UDC PO PRN (19:00)
[2017-02-10] MEDS ORDERED: traZODone 50 MG TAB PO PRN (19:00)
[2017-02-10] MEDS ORDERED: MAALOX 30 ML SUSP *UDC PO PRN (19:00)
[2017-02-10] MEDS ORDERED: hydrOXYzine 50 MG TAB PO PRN (19:00)
[2017-02-10] MEDS: ZIPRASIDONE 80 MG CAP (GEODON) PO SCH (20:26)
[2017-02-10] MEDS: BENZTROPINE 1 MG TAB PO SCH (20:27)
[2017-02-10] MEDS: ZIPRASIDONE 20MG CAPSULE (GEODON) PO SCH (20:27)
[2017-02-11 06:19] VITALS: BP 139/87
--- NOTE | 2017-02-11 09:59 | HPEPDOC ---
Medical History and Physical Date of Admission Feb 10, 2017 at 15:10 History and Physical PCP: Tiana SEVILLA ATTENDING: Dr. Valentín Fletcher HPI: 31yoM admitted to [facility] for schizoaffective disorder unspecified, being medically examined today. Pt was seen in the ED 02/09/17 for facial laceration. Pt states this occurred when he was "drunk" and fell off a porch. He denies headache pain, vision changes, diplopia or blurred vision. He denies any pain currently. Denies any fevers, chills, weakness, fatigue, CP, SOB, cough, palpitations, abdominal pain, N/V/D or changes in bowel or bladder habits. PMHx: Schizoaffective disorder Bipolar disorder Anxiety depression H/O SI PSHX: Denies SOCHX: Resides in: [place]. Lives alone. Marital Status: Single Kids: None Employment: unemployed Tobacco use: Denies ETOH: denies Illicit Drugs: denies. H/O Marijuana, states he last used years ago IV Drug Use: Denies Tattoos done unprofessionally: Denies FAMHX: Mother: Alive, well Father: when he was 7 years old- Homicide Siblings: 1 sister Alive, well Children: None Unexpected deaths due to medical reasons: None. ROS: As noted in HPI, otherwise 11pt ROS of systems reviewed and remarkable for "bladder pressure". Denies dysuria, frequency, urgency, hematuria. Sometimes it takes longer to start urinating per pt. PE: GEN: 31yoM, appears stated age. Well-nourished, well developed. No acute distress. Alert and oriented x 3. Appears anxious. HEENT: Normocephalic, atraumatic. Pupils are equal, round, and reactive to light. Extraocular movements are intact. No nystagmus appreciated. Sclera are nonicteric. Conjunctiva without injection. Nose midline. Nasal turbinates without bogginess. EACs both patent BL. TMs both visualized and hutchins with good cone of light, no bulging or erythema. No facial asymmetry. Moist mucous membranes. Dentition fair. Pharynx pink and moist, no cobblestoning. Neck supple , trachea midline. No lymphadenopathy or thyromegaly appreciated. CHEST: Regular rate and rhythm, +S1, +S2 LUNGS: Clear to auscultation bilaterally. No wheezes, rales, or rhonchi. Breathing appears symmetric and easy. Patient is speaking in full sentences. No accessory muscle use. ABD: Round, soft, non-tender, non-distended. +Bowel sounds throughout. No rebound or guarding. No costovertebral angle tenderness. EXT: Pulses 2+ bilaterally dorsalis pedis and radial. No lower extremity edema appreciated. SKIN: [place], dry, warm. Capillary refill <2sec. No rashes. Superficial laceration noted over Rt eyebrow. No drainage, erythema. NEURO: Alert and oriented x 3. Cranial nerves III-XII are intact. No focal deficits appreciated. EK02/02/17. SINUS RHYTHM INCOMPLETE RIGHT BUNDLE BRANCH BLOCK ST ELEVATION CONSISTENT WITH EARLY REPOLARIZATION COMPARED TO THE LAST 3 TRACINGS IN THE SYSTEM, NO SIGNIFICANT CHANGES UC pending. A&P: 31yoM admitted to [facility] for schizoaffective disorder unspecified, 1. Psych. Plan per Psychiatry. EKG on file. UA unremarkable/UC pending. 2. Facial laceration. Bactroban BID. Apply dry dressing BID. 3. Follow up with PCP on discharge. 4. Hypokalemia. Recheck BMP. 5. Abnormal TSH. Check TFTs in a.m. 6. Staff member Jayme present throughout exam. Vital Signs Vital Signs Date Time Temp Pulse Resp B/P (MAP) Pulse Ox O2 Delivery O2 Flow Rate FiO2 02/11/17 06:19 99.5 65 16 139/87 (104) Room Air 02/10/17 17:11 98 Laboratory Data Labs 24H Laboratory Tests 2 02/10/17 11:30: Urine Amphetamines Screen NEGATIVE, Urine Benzodiazepines Screen NEGATIVE, Urine Opiates Screen NEGATIVE, Urine Methadone Screen NEGATIVE, Urine Barbiturates Screen NEGATIVE, Urine Phencyclidine Screen NEGATIVE, Urine Cocaine Metabolite Screen NEGATIVE, Urine Cannabinoids Screen NEGATIVE 02/10/17 15:30: Anion Gap 15, Glomerular Filtration Rate > 60.0, Calcium Level 10.2H, Aspartate Amino Transf (AST/SGOT) 15, Alanine Aminotransferase (ALT/SGPT) 15, Alkaline Phosphatase 49, Total Bilirubin 1.2H, Direct Bilirubin 0.3H, Total Protein 7.9, Albumin 4.5, Albumin/Globulin Ratio 1.32, Thyroid Stimulating Hormone (TSH) 0.022L, Salicylates Level < 1.7L, Acetaminophen Level < 2.0L, Ethyl Alcohol Level < 0.003 CBC/BMP Laboratory Tests 02/10/17 15:30 Red Blood Count 4.97, Mean Corpuscular Volume 90.4, Mean Corpuscular Hemoglobin 30.8, Mean Corpuscular Hemoglobin Concent 34.1, Red Cell Distribution Width 12.5 Home Medications Scheduled Benztropine Mesylate (Benztropine Mesylate) 1 Mg Tab, 1 MG PO QHS Ziprasidone Hydrochloride (Geodon) 60 Mg Cap, 60 MG PO QHS TAKES WITH 80 MG FOR 140 MG TOTAL Ziprasidone Hydrochloride (Ziprasidone HCl) 80 Mg Cap, 80 MG PO QHS TAKES WITH 60MG FOR 140MG TOTAL Scheduled PRN Trazodone HCl (Trazodone HCl) 50 Mg Tab, 50 MG PO QHS PRN for SLEEP PT TOOK 4 TABLETS THROUGHOUT THE NIGHT AND WAS UNABLE TO FALL ASLEEP Allergies Coded Allergies: No Known Drug Allergy (Verified Allergy, Unknown, 02/08/17) Verified per Pt Shaniqua Maxwell Feb 11, 2017 09:59
[2017-02-11 11:36] LABS: ANION GAP 8 MEQ/L (8-16); BLOOD UREA NITROGEN 11 MG/DL (7-18); CALCIUM LEVEL 8.7 MG/DL (8.5-10.1); CARBON DIOXIDE LEVEL 30 MEQ/L (21-32); CHLORIDE LEVEL 104 MEQ/L (98-107); CREATININE FOR GFR 0.98 MG/DL (0.70-1.30); GLUCOSE, FASTING 106 MG/DL (70-105); POTASSIUM SERUM 4.4 MEQ/L (3.5-5.1); SODIUM LEVEL 142 MEQ/L (136-145)
[2017-02-11 11:38] LABS: GLOMERULAR FILTRATION RATE > 60.0 (>60)
[2017-02-11] MEDS ORDERED: NAPHCON-A OPHTH SOLN 15 ML OU PRN (11:45)
[2017-02-11] MEDS: MUPIROCIN 2% OINT 22 GM TUBE TOP SCH ×2 (11:49→20:09)
[2017-02-11] MEDS: PALIPERIDONE 3 MG ER TAB (INVEGA) PO SCH (12:05)
[2017-02-11] MEDS: LORazepam 1 MG TAB PO PRN ×2 (12:08→20:09)
--- NOTE | 2017-02-11 14:48 | MHHPEPDOC ---
[facility] History & Physical History and Physical DATE OF ADMISSION: Feb 10, 2017 at 15:10 LEGAL STATUS AT ADMISSION: 9.39 CHIEF COMPLAINT: Patient came to the emergency Department because he felt very anxious and depressed. He said he needed help, he still had not gotten over his recent breakup with ex girlfriend who left him for another man. He said he had taken 4 trazodone tablets for sleep but he said he didn't do it intentionally, he took one tablet and it didn't work, took a second tablet and it didn't work either. He tossed and turned for a couple of hours and took two more tablets. HISTORY OF THE PRESENT ILLNESS: Patient is a 31-year-old male, who was recently discharged from the inpatient mental health unit, 2 days ago. He was admitted on February 02 because he felt suicidal, he couldn't cope with the depression, the anxiety and stress he was suffering after his ex-girlfriend broke up with him and left him for another man. During that period of hospitalization the patient came receiving Geodon, Zoloft 140 mg at bedtime, because he refused other medications, especially Risperdal because it has made him gain weight. He was given antidepressants and medications to calm his anxiety. During that period, he became too close to a female patient that was also becoming too close to him. He said he enjoyed the attention she was giving to him, especially because his ex-girlfriend had broke up with but at the same time wouldn't stop calling his ex-girlfriend. Initially he called her every [id number] until we spoke about this issue and he was able to understand this was not helping him and was disturbing for his ex-girlfriend. He listened, seemed to grasp the concept but wouldn't do it again and again. When he was discharged, he seemed to be improved but on the same night of his discharge he came back to the emergency room because he fell on the floor on the porch for being intoxicated and he said he has smoked marijuana. Yesterday he came to the emergency room complaining of depression and severe anxiety over recent breakup with girlfriend , said he took 4 trazodone tablets but he says he did it because he couldn't go to sleep, it was not a suicide gesture or attempt. PSYCHIATRIC REVIEW OF SYSTEMS: Affective: Irritable, anxious, depressed, angry. Anxiety: High. Trauma: Denies history of physical, emotional or sexual abuse while growing up although he describes some bullying in school, but he says it didn't bother him. Psychosis: Denies auditory and visual hallucinations, denies thought delusions and denies suicidal or homicidal ideation. Personally: Dependent personality disorder. PAST PSYCHIATRIC HISTORY: Prior Psychiatric Disorder: Patient has a history of schizoaffective disorder. Outpatient Treatment: Gt. Suicidal/Self injurious: Denies. Psychotropic Medication History: He has taken Risperdal and different antipsychotic medications and he has remained on Geodon for several years now because he says he doesn't give him side effects and it has been able to control his symptoms effectively. ALLERGIES: Please see below. FAMILY PSYCHIATRIC HISTORY: He says his father has schizoaffective disorder like him and got killed when he (the patient) was very young. SOCIAL HISTORY: Early Relations/development: Patient reports he grew up with mom, remembers seeing his father until he was about or years old, has a good relationship with mother and stepfather. Sibling order: Not assessed. Paternal relationships: Mother lives in [place] but they keep in touch and they have a good relationship. Education: HS graduate Occupational: Currently she's on disability, unemployed. Legal: A previous girlfriend had an order of protection against him because he stalked her. Martial: Not and has no children. Economic: Denies financial problems. Supports: His mother. Abuse/trauma: Denies. SUBSTANCE ABUSE HISTORY: He admitted on his last admission that he hasn't used drugs and alcohol years ago, specifically marijuana. He said his ex-girlfriend helped him to stop using alcohol and drugs PAST MEDICAL/SURGICAL HISTORY: 1. History of laceration of the right eye (recent). VITAL SIGNS: See below MENTAL STATUS EXAMINATION: General appearance: Patient is a 31-year old male, who is alert, a little bit uncooperative, irritable, anxious. Speech: Loud. Thought processes: Slightly disorganized and irrational. Thought content: Perseveres about girlfriend's breakup with him and about how much anxiety and this has created. Abstract reasoning and computation: Limited. Description of associations: Good. Description of abnormal or psychotic thoughts: Denies auditory and visual hallucinations, denies thought delusions and denies suicidal and homicidal ideation. Judgment: Poor. Insight: Poor. Orientation: Oriented 3. Recent and remote memory: Intact. Attention span and concentration: Fair. Fund of knowledge: Fair. Mood: "I'm very anxious." Affect: Anxious/irritable/sad. DIAGNOSES: 1. Schizoaffective disorder. ASSESSMENT: Patient is not processing his problem because he continues to be focused on his ex-girlfriend. He is obsessed with her, cannot let go, he is very anxious. This web content writer discussed with him the use of Ativan and told him by tomorrow this dose will be decreased, especially after he was noted that on the day of his discharge presented to the emergency room with a laceration after he fell on the floor for being intoxicated with alcohol and marijuana. PROBLEM LIST: 1. Anxiety 2. Depression. 3. Ineffective coping 4 substance abuse 5. Poor impulse control 6. Risk for self injury INITIAL TREATMENT PLAN: 1. Patient was admitted on a 9 2. Complete history was obtained. 3. With patients permission, family will be contacted and database will be expanded. 4. Patients medication regimen will be reviewed and changed accordingly. 5. Patient will be provided with protected environment. 6. Patient will be treated with individual, group, and milieu therapies. 7. Patient will receive supportive psych-education. 8. Discharge planning will commence immediately. 9. Outpatient follow-up treatment will be strongly recommended. 10. The initial treatment plan will focus initially on: * Depression. * Risk for suicide. * Substance abuse. ESTIMATED LENGTH OF STAY: 5-7 DAYS. TIME SPENT COUNSELING AND COORDINATING INITIAL CARE: 60 minutes. Laboratory Data 24H Labs Laboratory Tests 2 02/10/17 15:30: Anion Gap 15, Glomerular Filtration Rate > 60.0, Calcium Level 10.2H, Aspartate Amino Transf (AST/SGOT) 15, Alanine Aminotransferase (ALT/SGPT) 15, Alkaline Phosphatase 49, Total Bilirubin 1.2H, Direct Bilirubin 0.3H, Total Protein 7.9, Albumin 4.5, Albumin/Globulin Ratio 1.32, Thyroid Stimulating Hormone (TSH) 0.022L, Salicylates Level < 1.7L, Acetaminophen Level < 2.0L, Ethyl Alcohol Level < 0.003 02/11/17 08:30: Urine Appearance CLEAR, Urine Color STRAW, Urine pH 7.0, Urine Specific [place] 1.004, Urine Protein NEGATIVE, Urine Glucose (UA) NEGATIVE, Urine Ketones NEGATIVE, Urine Urobilinogen 0.2, Urine Bilirubin NEGATIVE, Urine Leukocyte Esterase NEGATIVE, Urine Blood NEGATIVE, Urine Nitrite NEGATIVE, Urine WBC (Auto ) 0, Urine RBC (Auto) 0, Urine Hyaline Casts (Auto) 0, Urine Bacteria (Auto) 1+H , Urine Squamous Epithelial Cells 0, Urine Sperm (Auto) 02/11/17 10:49: Anion Gap 8, Glomerular Filtration Rate > 60.0, Calcium Level 8.7, Blood Urea Nitrogen 11#, Creatinine 0.98#, Sodium Level 142, Potassium Level 4.4#, Chloride Level 104, Carbon Dioxide Level 30 CBC/BMP Laboratory Tests 02/10/17 15:30 Red Blood Count 4.97, Mean Corpuscular Volume 90.4, Mean Corpuscular Hemoglobin 30.8, Mean Corpuscular Hemoglobin Concent 34.1, Red Cell Distribution Width 12.5 02/11/17 10:49 Calcium Level 8.7 Medications Scheduled Benztropine Mesylate (Benztropine Mesylate) 1 Mg Tab, 1 MG PO QHS, (Reported) Mupirocin (Mupirocin) 2 % Oin, 1 DOSE TOP BID for LACERATION Ziprasidone Hydrochloride (Geodon) 60 Mg Cap, 60 MG PO QHS, (Reported) TAKES WITH 80 MG FOR 140 MG TOTAL Ziprasidone Hydrochloride (Ziprasidone HCl) 80 Mg Cap, 80 MG PO QHS, (Reported) TAKES WITH 60MG FOR 140MG TOTAL Scheduled PRN Naphazoline/Pheniramine (Naphcon-A 0.025-0.3 %) 1 Krista Krista, 1 DROP OU QIDP PRN for REDNESS/IRRITATION Trazodone HCl (Trazodone HCl) 50 Mg Tab, 50 MG PO QHS PRN for SLEEP, (Reported) PT TOOK 4 TABLETS THROUGHOUT THE NIGHT AND WAS UNABLE TO FALL ASLEEP Allergies Coded Allergies: No Known Drug Allergy (Verified Allergy, Unknown, 02/08/17) Verified per Pt RAYMOND VICENTE MD Feb 11, 2017 14:48
[2017-02-11 18:00] VITALS: BP 113/56
[2017-02-11] MEDS: ZIPRASIDONE 80 MG CAP (GEODON) PO SCH (20:08)
[2017-02-11] MEDS: traZODone 50 MG TAB PO PRN (20:09)
[2017-02-11] MEDS: ZIPRASIDONE 20MG CAPSULE (GEODON) PO SCH (20:09)
[2017-02-11] MEDS: BENZTROPINE 1 MG TAB PO SCH (20:09)
[2017-02-12 06:51] VITALS: BP_SYST 131; BP_SYST 137; BP_DIAS 65; BP_DIAS 66
[2017-02-12 07:58] LABS: THYROXINE (T4) 8.1 UG/DL (4.5-12.0)
[2017-02-12] MEDS: MUPIROCIN 2% OINT 22 GM TUBE TOP SCH ×2 (07:58→20:01)
[2017-02-12] MEDS: ACETAMINOPHEN TAB 650MG DOSE (2X325MG) PO PRN (07:58)
[2017-02-12] MEDS: LORazepam 1 MG TAB PO PRN ×2 (07:58→16:09)
[2017-02-12] MEDS: PALIPERIDONE 3 MG ER TAB (INVEGA) PO SCH (07:58)
[2017-02-12 18:00] VITALS: BP 112/59
[2017-02-12] MEDS: BENZTROPINE 1 MG TAB PO SCH (20:00)
[2017-02-12] MEDS: ZIPRASIDONE 80 MG CAP (GEODON) PO SCH (20:00)
[2017-02-12] MEDS: ZIPRASIDONE 20MG CAPSULE (GEODON) PO SCH (20:00)
[2017-02-12] MEDS: traZODone 50 MG TAB PO PRN (20:04)
[2017-02-13] MEDS: LORazepam 1 MG TAB PO PRN ×2 (06:40→15:15)
[2017-02-13 07:07] VITALS: BP 115/71
[2017-02-13] MEDS: MUPIROCIN 2% OINT 22 GM TUBE TOP SCH ×2 (09:23→20:07)
[2017-02-13] MEDS: PALIPERIDONE 3 MG ER TAB (INVEGA) PO SCH (09:23)
[2017-02-13] MEDS: ACETAMINOPHEN TAB 650MG DOSE (2X325MG) PO PRN ×2 (11:50→20:09)
[2017-02-13 18:00] VITALS: BP 135/77
[2017-02-13] MEDS: traZODone 50 MG TAB PO PRN (20:06)
[2017-02-13] MEDS: BENZTROPINE 1 MG TAB PO SCH (20:06)
[2017-02-13] MEDS: ZIPRASIDONE 20MG CAPSULE (GEODON) PO SCH (20:06)
[2017-02-13] MEDS: ZIPRASIDONE 80 MG CAP (GEODON) PO SCH (20:06)
[2017-02-14 06:24] VITALS: BP 132/65
[2017-02-14] MEDS: PALIPERIDONE 3 MG ER TAB (INVEGA) PO SCH (08:09)
[2017-02-14] MEDS: ACETAMINOPHEN TAB 650MG DOSE (2X325MG) PO PRN ×2 (08:09→16:26)
[2017-02-14] MEDS: LORazepam 1 MG TAB PO PRN (08:10)
--- NOTE | 2017-02-14 08:46 | MHIPN ---
DATE: 02/12/2017 CHIEF COMPLAINT: Feels better. SUBJECTIVE: Is seen for followup. Indicates feels better today, and that he has been distressed as he had met a female patient during his last admission recently, and says they were seeing each other for a brief while, then she broke off. I am not sure of the details. He says when she decided not to be with him anymore, he felt distressed, particularly as she had been seeing someone else. He says today she is with her children, and he feels better for it, and more relaxed. MENTAL STATUS EXAMINATION: Neat. Cooperative though a bit guarded. No agitation. No psychomotor retardation. Coherent. Affect restricted, limited in range. Denies any thoughts of harming himself or anyone else. Does not appear internally preoccupied. No overt paranoid ideations elicited, but they are generally under the surface. Judgment and insight remain questionable. ASSESSMENT: Schizoaffective disorder. PLAN: Continue current care and observations. He remains on Invega and Trazodone. Encouraged participation activities in the unit. VITAL SIGNS: Blood pressure 137/65, pulse 67, temperature 97. DIAGNOSIS: Most in keeping with schizoaffective disorder.
[2017-02-14] MEDS: MUPIROCIN 2% OINT 22 GM TUBE TOP SCH ×2 (08:55→20:09)
[2017-02-14] MEDS: DIVALPROEX 250 MG TAB PO SCH ×2 (09:00→20:08)
--- NOTE | 2017-02-14 11:09 | MHIPN ---
DATE: 02/14/2017 CHIEF COMPLAINT: Feels stressed. SUBJECTIVE: Seen for followup, in the presence of staff. Says has been doing okay, but that he spoke of his ex-girlfriend, who was a patient here in the past. He says she will be with her boyfriend the next few days, and this upsets him, he feels anxious about it. Has used Ativan, and says it helps. Sleep is fair, as is appetite. MENTAL STATUS EXAMINATION: He is neat. He is cooperative, mildly irritable, rather concrete at times in his thinking, with a restricted affect. Denies active thoughts of harming himself or anyone else. Does not appear internally preoccupied. Cognition grossly intact. Judgment and insight remain compromised. ASSESSMENT: Bipolar disorder versus schizoaffective disorder. PLAN: Continue current care and observations, including the trazodone and Invega at current doses. Encourage participation in activities of the unit. He will be seeing his psychiatrist, Dr. Wan, tomorrow. VITAL SIGNS: These are as listed. Blood pressure 115/71. Pulse 74. Temperature 98.7.
[2017-02-14] MEDS: LORazepam 0.5 MG TAB PO PRN (16:26)
[2017-02-14 18:00] VITALS: BP 144/85
[2017-02-14] MEDS: ZIPRASIDONE 20MG CAPSULE (GEODON) PO SCH (20:07)
[2017-02-14] MEDS: BENZTROPINE 1 MG TAB PO SCH (20:07)
[2017-02-14] MEDS: ZIPRASIDONE 80 MG CAP (GEODON) PO SCH (20:07)
[2017-02-14] MEDS: traZODone 50 MG TAB PO PRN (20:07)
[2017-02-15 07:33] VITALS: BP 118/56
[2017-02-15] MEDS: ACETAMINOPHEN TAB 650MG DOSE (2X325MG) PO PRN ×2 (08:21→14:47)
[2017-02-15] MEDS: DIVALPROEX 250 MG TAB PO SCH ×2 (08:21→19:59)
[2017-02-15] MEDS: LORazepam 0.5 MG TAB PO PRN ×2 (08:21→16:36)
[2017-02-15] MEDS: MUPIROCIN 2% OINT 22 GM TUBE TOP SCH ×3 (08:22→20:01)
--- NOTE | 2017-02-15 16:18 | MHIPN ---
DATE: 02/14/2017 CHIEF COMPLAINT: The patient reports feeling better. SUBJECTIVE: The patient reports feeling better because he says he finally has let his girlfriend go because she was "nasty" to him last night over the phone, he asked her to leave him alone, she told him that he could not keep calling her parents' house because they were sleeping, then he told her that he was over her, and then she replied that if he was over her, why was he still calling her and she hung up on him. He said that because she was "nasty," he finally broke up with her and he is ready to let her go, he is not hurting anymore, he wants to be discharged tomorrow. OBJECTIVE: Patient is alert and oriented times three, cooperative with interview. His mood is anxious-depressed, his speech is pressured at times, his thought process is irrational, his thought content is about the breakup with his ex-girlfriend. He denies suicidal and homicidal ideation, denies thought delusions and delusions auditory and visual hallucinations. His insight and judgment are very poor, patient is very concrete, for that reason his insight is very low. His memory seems to be fair, his attention and concentration are fair. ASSESSMENT: Schizoaffective disorder, bipolar type. PLAN: Continue with the same medications, although patient has been offered the possibility of Depakote. He refuses, saying that Depakote causes suicidal ideation. The patient needs a mood stabilizer, but he continues to refuse all of them, the only thing that he accepts is Geodon, Ativan, and Atarax. MANAGEMENT PLAN: Patient has requested to be discharged, he has very poor insight and judgment, he is low functioning, concrete in his appreciations. He does not understand that he is annoying his ex-girlfriend with so many phone calls. He could be discharged, but phone calls need to be made to his faa certified powerplant mechanic tomorrow for followup appointments and safety check, if they are going to be able to check on him. Will followup.
[2017-02-15 18:00] VITALS: BP 132/86
[2017-02-15] MEDS: ZIPRASIDONE 80 MG CAP (GEODON) PO SCH (20:02)
[2017-02-15] MEDS: ZIPRASIDONE 20MG CAPSULE (GEODON) PO SCH (20:02)
[2017-02-15] MEDS: BENZTROPINE 1 MG TAB PO SCH (20:02)
[2017-02-15] MEDS: traZODone 50 MG TAB PO PRN (20:04)
[2017-02-16 07:03] VITALS: BP 127/56
[2017-02-16] MEDS: LORazepam 0.5 MG TAB PO PRN (07:42)
[2017-02-16] MEDS: DIVALPROEX 250 MG TAB PO SCH (08:04)
[2017-02-16] MEDS: MUPIROCIN 2% OINT 22 GM TUBE TOP SCH ×2 (08:04→08:31)
[2017-02-16] MEDS: ACETAMINOPHEN TAB 650MG DOSE (2X325MG) PO PRN (09:03)
[2017-02-16] MEDS ORDERED: NAPHSOL OU (11:35)
[2017-02-16] MEDS ORDERED: MUPI2OI TOP (11:35)
--- NOTE | 2017-02-16 16:00 | MHIPN ---
DATE: 02/15/2017 A 31-year-old male with history of schizoaffective disorder. SUBJECTIVE: The patient speaks once again about his ex-girlfriend says that he has been speaking to her on the phone and this time she was nice to him. He requests to be discharged because he would like to be discharged with other two patients who are leaving tomorrow. He refuses to take Depakote and says he is doing better and he will handle the situation. Discussed with him his substance abuse problem and he said he is already going to alcoholics anonymous ([facility]) meetings and he will not drink any liquor, not beer, he will not smoke because he needs that money for food and he cannot become hungry, it has happened to him in the past that he struggled and he became hungry because he was spending his money in cigarettes and alcohol. OBJECTIVE: The patient is alert and oriented. His mood is anxious. His affect is congruent to mood. His speech is a little bit pressured. His thought process is slightly tangential. His thought content is coherent for certain things and irrational for others. He denies auditory and visual hallucinations. Denies suicidal and homicidal thoughts but he is still delusional about his past relationship with a woman who once was patient of the inpatient mental health unit. His insight and judgment continue to be very poor. His memory is intact. His attention and concentration are fair. MANAGEMENT PLAN: We will continue the same medications. We will discontinue Depakote because the patient is refusing to take it. There are plans for discharging him tomorrow, but he has not signed a release of information, and in that case, our case management social worker cannot contact his business architect which is necessary for him to be discharged. We will insist on release of information for us to talk with case management social worker. We will followup.
--- NOTE | 2017-02-16 20:14 | MHDSPDOC ---
[facility] Discharge Summary Discharge Summary DATE OF ADMISSION: Feb 10, 2017 at 15:10 DATE OF DISCHARGE: Feb 16, 2017 at 14:10 DISCHARGE DIAGNOSES: 1. Schizoaffective Disorder 2. Intellectual Disability (mild) REASON FOR ADMISSION: CHIEF COMPLAINT: Patient came to the emergency Department because he felt very anxious and depressed. He said he needed help, he still had not gotten over his recent breakup with ex girlfriend who left him for another man. He said he had taken 4 trazodone tablets for sleep but he said he didn't do it intentionally, he took one tablet and it didn't work, took a second tablet and it didn't work either. He tossed and turned for a couple of hours and took two more tablets. HISTORY OF THE PRESENT ILLNESS: Patient is a 31-year-old male, who was recently discharged from the inpatient mental health unit, 2 days ago. He was admitted on February 02 because he felt suicidal, he couldn't cope with the depression, the anxiety and stress he was suffering after his ex-girlfriend broke up with him and left him for another man. During that period of hospitalization the patient came receiving Geodon, Zoloft 140 mg at bedtime, because he refused other medications, especially Risperdal because it has made him gain weight. He was given antidepressants and medications to calm his anxiety. During that period, he became too close to a female patient that was also becoming too close to him. He said he enjoyed the attention she was giving to him, especially because his ex-girlfriend had broke up with but at the same time wouldn't stop calling his ex-girlfriend. Initially he called her every [id number] until we spoke about this issue and he was able to understand this was not helping him and was disturbing for his ex-girlfriend. He listened, seemed to grasp the concept but wouldn't do it again and again. When he was discharged, he seemed to be improved but on the same night of his discharge he came back to the emergency room because he fell on the floor on the porch for being intoxicated and he said he has smoked marijuana. Yesterday he came to the emergency room complaining of depression and severe anxiety over recent breakup with girlfriend , said he took 4 trazodone tablets but he says he did it because he couldn't go to sleep, it was not a suicide gesture or attempt. CONSULTANTS INVOLVED: None TREATMENT AND PROGRESS ON THE UNIT : Patient was very anxious and at times he was irritable. He has problems accepting the loss of a relationship. He has a concrete thought process, he has problems with being over controlling with women and doesn't know how to let go. His ex girlfriend broke up with him and he hasn't stop calling her. She has told him they are not a couple anymore, she has been clear and told him he has another boyfriend. She finally told her he couldn't keep calling her parent's home, that iswhere she lives for now, and he got upset with her. After that episode he said he broke up with her because she was "very nasty to me, she was not like that before". He has become fixated in other female patients at the [facility]. Has attended groups but sometimes he has been disruptive. He doesn't focus on his problems, he fouses on his ex girlfriend. He has refused Depakote and has said this medication causes suicidal ideation and depression, then proceeds to tell me " when I was taking it, I had thoughts of cutting my wrists, I never had that before. It was caused by Depakote". Patient has said he is not going to drink alcohol or smoke marijuana because he has promised his mother he won't do it. HOSPITAL COURSE: As above. DISCHARGE ASSESSMENT: Patient was not suicidl, not homicidal, not psychotic upon discharge. He was not dangerous to self or others. MENTAL STATUS EXAMINATION ON DISCHARGE: Patient is a 31-year old male, who is alert, cooperative, with good eye contact. Speech is Spontaneous and fluid. Language skills are Fair. Thought processes including: [place], somewhat circumstantial. Thought content: Anxious thoughts about ex girlfriend. Abstract reasoning, and computation: Limited. Description of associations: Good. Description of abnormal or psychotic thoughts: Denies auditory and visual hallucinations, denies thought delusions, denies auditory and visual hallucinations. He is not responding to internal stimuli. Judgment: Limited. Insight: Limited. Orientation to Oriented x 3. Recent and remote memory: Intact. Attention span and concentration: Fair. Language: Fair. Fund of knowledge: Fair. Mood: Euthymic Affect: Congruent to mood. MEDICATIONS ON DISCHARGE: - Geodon 140 mgs PO QHS for psychosis. - Cogentin 1 mg. PO QHS for extrapyramidal side effects - trazodone 50 mgs. PO QHS for insomnia -Mupirocin 1 TOP BID for eye laceration -Naphcon 1 drop in each eye every 4 hours PRN for eye irritation. PLAN/FOLLOWUP ARRANGEMENTS: Mental Health Appt 1 * [facility] * Established With This Provider Yes * Therapist CYNDI COKER * Date Feb 21, 2017 * Time 10:00 * * Additional information [facility] * Mental Health Appt 2 * Mental Health [facility] * Established With This Provider Yes * Therapist DR. GARCIA * Date Mar 18, 2017 * Time 11:30 * Medical * Medical Follow Up [facility] * Established With This Provider Yes * Date Feb 22, 2017 * Time 11:00 * * Additional information [id number] The amount of time spent in the coordination of care for this patient was approximately 45 minutes. Vital Signs/I&Os Vital Signs Date Time Temp Pulse Resp B/P (MAP) Pulse Ox O2 Delivery O2 Flow Rate FiO2 02/16/17 07:03 98.6 68 16 127/56 (79) 02/15/17 18:00 Room Air 02/10/17 17:11 98 Laboratory Data Microbiology Microbiology 02/11/17 Urine Culture - Final, Complete Medications Scheduled Benztropine Mesylate (Benztropine Mesylate) 1 Mg Tab, 1 MG PO QHS, (Reported) Mupirocin (Mupirocin) 2 % Oin, 1 DOSE TOP BID for LACERATION, #1 Ziprasidone Hydrochloride (Geodon) 60 Mg Cap, 60 MG PO QHS, (Reported) TAKES WITH 80 MG FOR 140 MG TOTAL Ziprasidone Hydrochloride (Ziprasidone HCl) 80 Mg Cap, 80 MG PO QHS, (Reported) TAKES WITH 60MG FOR 140MG TOTAL Scheduled PRN Naphazoline/Pheniramine (Naphcon-A 0.025-0.3 %) 1 Krista Krista, 1 DROP OU QIDP PRN for REDNESS/IRRITATION, #1 Trazodone HCl (Trazodone HCl) 50 Mg Tab, 50 MG PO QHS PRN for SLEEP, (Reported) PT TOOK 4 TABLETS THROUGHOUT THE NIGHT AND WAS UNABLE TO FALL ASLEEP Allergies Coded Allergies: No Known Drug Allergy (Verified Allergy, Unknown, 02/08/17) Verified per Pt RAYMOND VICENTE MD Feb 16, 2017 20:14
== END 2017-02-16 14:10 | disposition home or self-care (01) | DRG 750 ==
LOC: M ED 11:13 → M ED INP 15:10 → M PSY 17:30
PROVIDERS: ADMIT Psychiatry & Neurology Psychiatry; ATTEND Psychiatry & Neurology Psychiatry
DX: F25.9 Schizoaffective disorder, unspecified (principal); F70 Mild intellectual disabilities; E87.6 Hypokalemia; R94.6 Abnormal results of thyroid function studies; S01.111D Laceration without foreign body of right eyelid and periocular area, subsequent encounter; Z79.899 Other long term (current) drug therapy; W01.0XXD Fall on same level from slipping, tripping and stumbling without subsequent striking against object, subsequent encounter; Y99.9 Unspecified external cause status

== ENCOUNTER 2017-02-17 18:30 | Emergency (ER) | payer MEDICAID, OTHER ==
[~2017-02-17] VITALS: Ht 190.5 cm; Wt 72.0 kg
[~2017-02-17 18:30] MED LIST changes: +MUPI2OI TOP; +NAPHSOL OU
[2017-02-17 19:32] LABS: MEAN CORPUSCULAR HGB CONC 33.9 g/dl (32.0-36.5); MEAN CORPUSCULAR VOLUME 91.5 fl (80.0-96.0); RED CELL DISTRIBUTION WIDTH 12.3 % (11.5-14.5); WHITE BLOOD COUNT 8.2 K/mm3 (4.0-10.0)
[2017-02-17 20:01] LABS: METHADONE URINE NEGATIVE (NEGATIVE)
[2017-02-17 20:09] LABS: ALBUMIN 4.1 GM/DL (3.2-5.2); ALBUMIN/GLOBULIN RATIO 1.21 (1.00-1.93); ALKALINE PHOSPHATASE 61 U/L (45-117); ALT/SGPT 16 U/L (12-78); ANION GAP 8 MEQ/L (8-16); AST/SGOT 18 U/L (15-37); BILIRUBIN,DIRECT 0.1 MG/DL (0.0-0.2); BILIRUBIN,TOTAL 0.5 MG/DL (0.2-1.0); BLOOD UREA NITROGEN 12 MG/DL (7-18); CALCIUM LEVEL 8.8 MG/DL (8.5-10.1); CARBON DIOXIDE LEVEL 31 MEQ/L (21-32); CHLORIDE LEVEL 106 MEQ/L (98-107); CREATININE FOR GFR 0.86 MG/DL (0.70-1.30); GLOMERULAR FILTRATION RATE > 60.0 (>60); GLUCOSE, FASTING 92 MG/DL (70-105); POTASSIUM SERUM 4.1 MEQ/L (3.5-5.1); SODIUM LEVEL 145 MEQ/L (136-145); TOTAL PROTEIN 7.5 GM/DL (6.4-8.2)
[2017-02-17 23:13] VITALS: BP 112/69
== END 2017-02-17 23:16 | disposition home or self-care (01) ==
LOC: M ED 18:30
DX: F25.9 Schizoaffective disorder, unspecified (principal)

== ENCOUNTER 2017-05-23 09:00 | Outpatient (RCR) | payer MEDICAID | END 2017-05-26 | LOC: M OUTALCOH 09:00 | PROVIDERS: ATTEND Psychiatry & Neurology Psychiatry | DX: F12.20 Cannabis dependence, uncomplicated (principal); F10.20 Alcohol dependence, uncomplicated; F14.10 Cocaine abuse, uncomplicated ==

== ENCOUNTER 2017-05-27 10:49 | Outpatient (RCR) | payer MEDICAID | END 2017-06-26 | LOC: M OUTALCOH 10:49 | DX: F10.20 Alcohol dependence, uncomplicated (principal); F12.20 Cannabis dependence, uncomplicated; F14.10 Cocaine abuse, uncomplicated ==

== ENCOUNTER 2017-07-04 09:20 | Outpatient (RCR) | payer MEDICAID | END 2017-07-27 | LOC: M OUTALCOH 07-18 09:00 | DX: F10.20 Alcohol dependence, uncomplicated (principal); F12.20 Cannabis dependence, uncomplicated; F14.10 Cocaine abuse, uncomplicated ==

== ENCOUNTER → 2017-07-25 | Outpatient (REF) | payer MEDICAID, OTHER ==
[2017-07-25 16:37] LABS: APPEARANCE, URINE CLEAR (CLEAR); BACTERIA, URINE AUTO NEGATIVE (NEGATIVE); BILIRUBIN, URINE AUTO NEGATIVE (NEGATIVE); BLOOD, URINE BLOOD NEGATIVE (NEGATIVE); COLOR, URINE STRAW (YELLOW); GLUCOSE, URINE (UA) AUTO NEGATIVE (NEGATIVE); KETONE, URINE AUTO NEGATIVE (NEGATIVE); LEUKOCYTE ESTERASE, URINE AUTO NEGATIVE (NEGATIVE); NITRITE, URINE AUTO NEGATIVE (NEGATIVE); PROTEIN, URINE AUTO NEGATIVE (NEGATIVE); RBC, URINE AUTO 3 /HPF (0-3); SPECIFIC GRAVITY URINE AUTO 1.015 (1.002-1.035); SQUAMOUS EPITHELIAL CELL UR AU 0 /HPF (0-6); UROBILINOGEN, URINE AUTO 0.2 mg/dL (0.0-2.0); WBC, URINE AUTO 0 /HPF (0-3)
== END ==
LOC: M SFHCPLAZ 15:47
DX: R10.9 Unspecified abdominal pain (principal)
CPT/HCPCS: 81001

== ENCOUNTER → 2017-07-29 | Outpatient (REF) | payer OTHER ==
[2017-07-29 16:32] LABS: URIC ACID 5.2 MG/DL (3.5-7.2)
[2017-07-29 16:32] LABS: C REACTIVE PROTEIN QUANTITATIV < 0.30 MG/DL (0.00-0.30); TROPONIN I < 0.02 NG/ML (< 0.10)
== END ==
LOC: M SFHCPLAZ 15:07
DX: I30.0 Acute nonspecific idiopathic pericarditis (principal)

== ENCOUNTER → 2017-08-03 | Outpatient (REF) | payer OTHER ==
[2017-08-03 11:55] LABS: APPEARANCE, URINE CLEAR (CLEAR); BACTERIA, URINE AUTO NEGATIVE (NEGATIVE); BILIRUBIN, URINE AUTO NEGATIVE (NEGATIVE); BLOOD, URINE BLOOD NEGATIVE (NEGATIVE); COLOR, URINE YELLOW (YELLOW); GLUCOSE, URINE (UA) AUTO NEGATIVE (NEGATIVE); KETONE, URINE AUTO NEGATIVE (NEGATIVE); LEUKOCYTE ESTERASE, URINE AUTO NEGATIVE (NEGATIVE); NITRITE, URINE AUTO NEGATIVE (NEGATIVE); PROTEIN, URINE AUTO NEGATIVE (NEGATIVE); RBC, URINE AUTO 2 /HPF (0-3); SPECIFIC GRAVITY URINE AUTO 1.012 (1.002-1.035); SQUAMOUS EPITHELIAL CELL UR AU 0 /HPF (0-6); UROBILINOGEN, URINE AUTO 0.2 mg/dL (0.0-2.0); WBC, URINE AUTO 0 /HPF (0-3)
[2017-08-03 12:06] LABS: TROPONIN I < 0.02 NG/ML (< 0.10)
== END ==
LOC: M SFHCPLAZ 08:39
DX: I30.0 Acute nonspecific idiopathic pericarditis (principal); R10.9 Unspecified abdominal pain
CPT/HCPCS: 82553

== ENCOUNTER 2017-08-09 14:53 | Outpatient (RCR) | payer OTHER | END 2017-08-24 | LOC: M OUTALCOH 14:53 | DX: F10.20 Alcohol dependence, uncomplicated (principal); F12.20 Cannabis dependence, uncomplicated; F14.10 Cocaine abuse, uncomplicated ==

== ENCOUNTER 2017-08-12 11:37 | Inpatient (IN) | payer MEDICAID, OTHER ==
[2017-08-12 12:44] LABS: HEMATOCRIT 46.6 % (42.0-52.0); HEMOGLOBIN 15.8 g/dl (14.0-18.0); MEAN CORPUSCULAR HEMOGLOBIN 30.4 pg (27.0-33.0); MEAN CORPUSCULAR HGB CONC 33.9 g/dl (32.0-36.5); MEAN CORPUSCULAR VOLUME 89.6 fl (80.0-96.0); PLATELET COUNT, AUTOMATED 256 10^3/uL (150-450); RED CELL DISTRIBUTION WIDTH 12.6 % (11.5-14.5); WHITE BLOOD COUNT 5.9 10^3/uL (4.0-10.0)
[2017-08-12 13:10] LABS: AMPHETAMINES LEVEL URINE NEGATIVE (NEGATIVE); BARBITURATES URINE NEGATIVE (NEGATIVE); BENZODIAZEPINES URINE NEGATIVE (NEGATIVE); CANNABINOIDS URINE NEGATIVE (NEGATIVE); COCAINE METABOLITE URINE NEGATIVE (NEGATIVE); METHADONE URINE NEGATIVE (NEGATIVE); OPIATES URINE NEGATIVE (NEGATIVE); PHENCYCLIDINE URINE NEGATIVE (NEGATIVE)
[2017-08-12 13:15] LABS: ALBUMIN 4.6 GM/DL (3.2-5.2); ALBUMIN/GLOBULIN RATIO 1.24 (1.00-1.93); ALKALINE PHOSPHATASE 57 U/L (45-117); ALT/SGPT 24 U/L (12-78); ANION GAP 5 MEQ/L (8-16); AST/SGOT 20 U/L (7-37); BILIRUBIN,DIRECT 0.2 MG/DL (0.0-0.2); BILIRUBIN,TOTAL 0.9 MG/DL (0.2-1.0); BLOOD UREA NITROGEN 11 MG/DL (7-18); CALCIUM LEVEL 9.5 MG/DL (8.5-10.1); CARBON DIOXIDE LEVEL 33 MEQ/L (21-32); CHLORIDE LEVEL 102 MEQ/L (98-107); ETHYL ALCOHOL (ETHANOL) < 0.003 % (0.000-0.010); GLOMERULAR FILTRATION RATE > 60.0 (>60); GLUCOSE, FASTING 107 MG/DL (70-100); POTASSIUM SERUM 4.1 MEQ/L (3.5-5.1); SALICYLATE LEVEL < 1.7 MG/DL (5.0-30.0); SODIUM LEVEL 140 MEQ/L (136-145); THYROID STIMULATING HORMONE 0.703 uIU/ML (0.358-3.740); TOTAL PROTEIN 8.3 GM/DL (6.4-8.2)
[2017-08-12 13:17] LABS: ACETAMINOPHEN LEVEL < 2.0 UG/ML (10.0-30.0)
[2017-08-12] MEDS ORDERED: MAALOX 30 ML SUSP *UDC PO (14:15)
[2017-08-12] MEDS ORDERED: MOM 30ML SUSPENSION UDC PO (14:15)
[2017-08-12] MEDS ORDERED: ACETAMINOPHEN TAB 650MG DOSE (2X325MG) PO (14:15)
[2017-08-12] MEDS: BENZTROPINE 2 MG TAB PO (20:02)
[2017-08-12] MEDS: traZODone 50 MG TAB PO (20:02)
[2017-08-12] MEDS: ZIPRASIDONE 20MG CAPSULE (GEODON) PO (20:03)
[2017-08-12] MEDS: IBUPROFEN 400 MG TAB PO (20:03)
[2017-08-12] MEDS: ZIPRASIDONE 80 MG CAP (GEODON) PO (20:04)
[2017-08-12] MEDS ORDERED: PALIPERIDONE 6 MG ER TAB (INVEGA) PO (21:00)
[2017-08-13] MEDS: DIVALPROEX 500 MG TAB PO (09:02)
[2017-08-13] MEDS: IBUPROFEN 400 MG TAB PO ×2 (09:04→15:56)
[2017-08-13] MEDS: BENZTROPINE 2 MG TAB PO (20:26)
[2017-08-13] MEDS: traZODone 50 MG TAB PO (20:26)
[2017-08-13] MEDS: ZIPRASIDONE 20MG CAPSULE (GEODON) PO (20:26)
[2017-08-13] MEDS: ZIPRASIDONE 80 MG CAP (GEODON) PO (20:26)
[2017-08-14] MEDS: DIVALPROEX 500 MG TAB PO (09:23)
[2017-08-14] MEDS: IBUPROFEN 400 MG TAB PO ×2 (13:48→20:03)
[2017-08-14] MEDS: ZIPRASIDONE 80 MG CAP (GEODON) PO (20:00)
[2017-08-14] MEDS: ZIPRASIDONE 20MG CAPSULE (GEODON) PO (20:00)
[2017-08-14] MEDS: BENZTROPINE 2 MG TAB PO (20:00)
[2017-08-14] MEDS: traZODone 50 MG TAB PO (20:00)
[2017-08-15] MEDS: IBUPROFEN 400 MG TAB PO ×2 (09:15→16:07)
[2017-08-15] MEDS: DIVALPROEX 500 MG TAB PO (09:17)
[2017-08-15] MEDS: OLANZapine 5 MG TAB PO (17:29)
[2017-08-15] MEDS: traZODone 50 MG TAB PO (20:59)
[2017-08-15] MEDS: ZIPRASIDONE 20MG CAPSULE (GEODON) PO (20:59)
[2017-08-15] MEDS: ZIPRASIDONE 80 MG CAP (GEODON) PO (20:59)
[2017-08-15] MEDS: BENZTROPINE 2 MG TAB PO (20:59)
[2017-08-16] MEDS: DIVALPROEX 500 MG TAB PO (09:14)
[2017-08-16] MEDS: IBUPROFEN 400 MG TAB PO (09:15)
== END 2017-08-16 13:36 | disposition home or self-care (01) | DRG 885 ==
LOC: M ED 11:37 → M ED INP 14:09 → M PSY 15:10
DX: F25.9 Schizoaffective disorder, unspecified (principal)